=== PATIENT | male | born 1995 | race Caucasian/White ===

== ENCOUNTER → 2018-10-14 | Outpatient (CLI) | payer BC ==
[2018-10-14 15:27] LABS: HCT 44.6 % (39.0-53.0); MCH 27.8 pg (25.0-35.0); MCHC 31.3 g/dL (31.0-37.0); MCV 88.7 fL (80.0-100.0); Mean Platelet Volume 7.9; Platelet Count 226 k/uL (150-450); RBC 5.04 m/uL (4.30-5.90); RDW 13.6 % (11.5-15.5); WBC 7.3 k/uL (3.8-10.6)
[2018-10-14 17:06] LABS: Erythrocyte Sedimentation Rate 9 mm/hr (0-15)
[2018-10-14 23:56] LABS: African American GFR (CKD) 109.1 (60.0-200.0); Albumin 4.6 g/dL (3.80-4.90); Albumin/Globulin Ratio 1.77 (1.60-3.17); Anion Gap 8.3 mmol/L (4.00-12.00); BUN/Creat Ratio 11.82 Ratio (12.00-20.00); C Reactive Protein 1.2 mg/dL (0.0-0.8); Calcium 9.6 mg/dL (8.7-10.3); Carbon Dioxide 28.7 mmol/L (21.6-31.8); Globulin 2.6 g/dL (1.6-3.3); Potassium 4.7 mmol/L (3.5-5.5); Total Bilirubin 0.4 mg/dL (0.3-1.2); Total Protein 7.2 g/dL (6.2-8.2)
[2018-10-15 00:35] LABS: Gliadin AB IgA, Unit 0.7 U/mL
== END | disposition home or self-care (01) ==
LOC: LABWHC1 14:25
DX: R10.13 Epigastric pain (principal)
CPT/HCPCS: 36415; 80053; 83516; 84439; 84443; 85027; 85652; 86140

== ENCOUNTER → 2019-04-06 | Outpatient (CLI) | payer BC ==
[2019-04-07 02:07] LABS: Clam IgE <0.10 kU/L; Scallop IgE <0.10 kU/L; Shrimp IgE <0.10 kU/L; Soybean IgE 0.21 kU/L; Walnut IgE (Food) 0.23 kU/L
[2019-04-07 02:09] LABS: Codfish IgE <0.10 kU/L; Egg White IgE <0.10 kU/L
[2019-04-08 09:55] LABS: Avocado Class CLASS 0/1; Banana IgE Class CLASS 1; Hazelnut IgE Class CLASS 3; Kiwi IgE 0.43 kU/L (<0.10); Kiwi IgE Class CLASS 1; Latex IgE Class CLASS 1
[2019-04-08 11:49] LABS: Potato IgE 1.03 kU/L (<0.10); Potato IgE Class CLASS 2
== END | disposition home or self-care (01) ==
LOC: LABWHC1 16:41
PROVIDERS: ATTEND Otolaryngology
DX: J30.89 Other allergic rhinitis (principal); L50.0 Allergic urticaria; B44.89 Other forms of aspergillosis
CPT/HCPCS: 36415; 82785; 86003